=== PATIENT | male | born 1990 | race Hispanic/Latino ===

== ENCOUNTER 2018-06-03 13:46 | Emergency (ER) | payer SELFPAY | END 2018-06-03 14:29 | disposition home or self-care (01) | LOC: EDH 13:46 | DX: S60.221A Contusion of right hand, initial encounter (principal); Z72.0 Tobacco use; W20.8XXA Other cause of strike by thrown, projected or falling object, initial encounter; Y93.89 Activity, other specified; Y92.69 Other specified industrial and construction area as the place of occurrence of the external cause; Y99.8 Other external cause status | CPT/HCPCS: 73130 ==